=== PATIENT | female | born 1985 | race Caucasian/White ===

== ENCOUNTER 2016-05-22 13:02 | Emergency (ER) | payer SELFPAY ==
[2016-05-22 13:52] LABS: HEMOGLOBIN 16.3 gm/dl (12.3-15.3); RED BLOOD COUNT 4.86 M/UL (4.00-5.10); WHITE BLOOD COUNT 6.8 K/UL (4.5-11.0)
[2016-05-22 14:07] LABS: BUN/CREATININE RATIO 18 (0-10)
== END 2016-05-22 16:10 | disposition home or self-care (01) ==
LOC: ER1 13:02
PROVIDERS: Emergency Medicine
DX: I49.8 Other specified cardiac arrhythmias (principal); R07.89 Other chest pain; F17.200 Nicotine dependence, unspecified, uncomplicated
CPT/HCPCS: 36415; 71010; 80053; 82550; 82553; 83874; 84443; 84484; 84703; 85025; 85379; 93005; 93270; 99285

== ENCOUNTER → 2020-08-21 | Outpatient (CLI) | payer OTHER ==
[~2020-08-21] MED LIST: PLAQUENIL 200200 MG PO; PRENATAL VITAM1 EAC8 PO; ZANTAC150 MG PO
[2020-08-21 12:08] LABS: HEMOGLOBIN 13.8 gm/dl (12.3-15.3); RED BLOOD COUNT 3.73 M/UL (4.00-5.10); WHITE BLOOD COUNT 4.5 K/UL (4.5-11.0)
[2020-08-21 12:39] LABS: BUN/CREATININE RATIO 18 (0-10)
[2020-08-22 11:14] LABS: COMPLEMENT C3, SERUM 88 mg/dL (82-167); COMPLEMENT C4, SERUM 12 mg/dL (12-38)
[2020-08-24 09:10] LABS: DSDNA CRITHIDIA LUCILIAE IFA Negative (Negative)
== END ==
LOC: LAB 10:01
PROVIDERS: Internal Medicine
DX: M32.9 Systemic lupus erythematosus, unspecified (principal); Z79.899 Other long term (current) drug therapy
CPT/HCPCS: 36415; 80053; 81001; 82570; 84156; 85025; 86160; 86162; 86255

== ENCOUNTER → 2020-12-16 | Outpatient (CLI) | payer OTHER | LOC: KOH-I 09:23 | DX: M32.9 Systemic lupus erythematosus, unspecified (principal); D84.9 Immunodeficiency, unspecified; R59.0 Localized enlarged lymph nodes | CPT/HCPCS: 76536 ==

== ENCOUNTER → 2020-12-16 | Outpatient (CLI) | payer OTHER ==
[2020-12-16 11:11] LABS: HEMOGLOBIN 13.9 gm/dl (12.3-15.3); RED BLOOD COUNT 3.62 M/UL (4.00-5.10); WHITE BLOOD COUNT 3.5 K/UL (4.5-11.0)
[2020-12-16 11:41] LABS: BUN/CREATININE RATIO 13 (0-10)
[2020-12-17 11:13] LABS: COMPLEMENT C3, SERUM 84 mg/dL (82-167); COMPLEMENT C4, SERUM 12 mg/dL (12-38)
[2020-12-18 11:14] LABS: DSDNA CRITHIDIA LUCILIAE IFA Negative (Negative)
== END ==
LOC: LAB 10:34
PROVIDERS: Internal Medicine
DX: M32.9 Systemic lupus erythematosus, unspecified (principal)
CPT/HCPCS: 36415; 80053; 85025; 86160; 86162; 86255

== ENCOUNTER → 2021-02-06 | Outpatient (CLI) | payer OTHER | LOC: US 09:00 | DX: E04.1 Nontoxic single thyroid nodule (principal) ==